=== PATIENT | male | born 1980 | race Caucasian/White ===

== ENCOUNTER 2024-08-13 12:03 | Observation (INO) | payer SELFPAY ==
[2024-08-13 12:07] VITALS: BP 154/110; PULSE 118; RESP 20; TEMP 37; O2SAT 94
[2024-08-13 12:40] LABS: Abs Immature Grans 0.04 10^3/uL (0.0-0.06); Absolute Basophil Count 0.03 10^3/uL (0.0-0.2); Absolute Eosinophil Count 0.05 10^3/uL (0.0-0.7); Absolute Monocyte Count 1.04 10^3/uL (0.1-0.8); Absolute Neutrophil Count 8.02 10^3/uL (1.2-6.7); Basophils % 0.3 %; Eosinophils % 0.5 %; HCT 45.2 % (40.0-50.0); HGB 14.8 g/dL (13.5-17.5); Immature Grans % 0.4 %; Lymphocytes % 9.8 %; MCH 29.8 pg (27.0-33.0); MCHC 32.7 % (32.0-36.0); MCV 91 fL (80-95); MPV 9.2 fL (8.0-11.0); Monocytes % 10.2 %; Neutrophils % 78.8 %; Platelet Count 316 10^3/uL (130-400); RBC 4.97 10^6/uL (4.36-5.78); RDW 13.1 % (11.8-14.1); RDW-SD 43.9 fL; WBC 10.18 10^3/uL (4.4-10.8)
--- NOTE | 2024-08-13 12:42 | W.ED.GENAD ---
Discharge Plan Disposition Patient Disposition: Admit to [facility] Condition: Serious Discharge Details Chief Complaint: Abd Prob Clinical Impression: Obstructive jaundice, Cholelithiasis, Abnormal transaminases, Hyperbilirubinemia Admit Date/Time: 08/13/24 14:58 Admit Provider: Rosalio Nash Attending Provider: Rosalio Nash Primary Care Provider: Unknown,Unknown ED Provider: Rajinder Peralta [facility] General Mode of arrival: ambulatory. Date/Time Provider Initiated Documentation: 08/13/24 12:13. Limitations to Documentation: no limitations. Information obtained by: patient. HPI Narrative: 43-year-old male presents with chief complaint of abdominal pain. Patient notes he experienced sudden sharp upper abdominal pain 3 days ago. Pain improved and then the following day he had recurrent discomfort in the same area. Pain has persisted. No associated nausea or vomiting. He has associated yellow discoloration to skin. Related Data Home Medications ?Medication ?Instructions ?Recorded ?Confirmed Unknown [No Known Home Meds] 08/13/24 08/13/24 Allergies Allergy/AdvReac Type Severity Reaction Status Date / Time shellfish derived Allergy Severe Anaphylaxis Verified 08/13/24 12:11 General Stated Complaint: Abd Prob SHON: 3 Review of Systems All systems reviewed & are unremarkable except as noted in HPI and below Constitutional Constitutional: Denies fever(s) Gastrointestinal Gastrointestinal: Reports as per HPI Exam Const General: cooperative and no acute distress HENMT Mouth: moist mucous membranes Eyes Sclera: scleral abnormality bilaterally other (Icterus) Resp Auscultation: clear to auscultation bilaterally, no rales, no rhonchi and no wheezes Cardio Rate: regular rate and not tachycardic Rhythm: regular rhythm GI Inspection: non-distended Palpation: soft, not firm, no guarding, no masses, not rigid and tender in the epigastrum Auscultation: normal bowel sounds Skin General skin exam: jaundice Neuro General: patient alert, patient awake, patient oriented x3 and tone normal Cognition: normal cognition Extrem General: no edema Course Vital Signs Vital signs: Vital Signs Temperature 37.0 C 08/13/24 12:07 Pulse 118 H 08/13/24 12:07 Respiratory Rate 20 08/13/24 12:07 Blood Pressure 154/110 H 08/13/24 12:07 Pulse Oximetry 94 08/13/24 12:07 Temperature 37.0 C 08/13/24 12:07 Pulse 118 H 08/13/24 12:07 Respiratory Rate 20 08/13/24 12:07 Respiratory Effort Non-Labored 08/13/24 12:25 Blood Pressure 154/110 H 08/13/24 12:07 Blood Pressure Position Sitting 08/13/24 12:07 Pulse Oximetry 94 08/13/24 12:07 Oxygen Delivery Method Room Air 08/13/24 12:07 Oxygen Flow Rate 0 08/13/24 12:07 Pain Level 4 08/13/24 12:07 Lab/Test Results Lab/Test Results: Laboratory Tests Range/Units 08/13/24 12:30 WBC (4.4-10.8) 10^3/uL 10.18 RBC (4.36-5.78) 10^6/uL 4.97 Hgb (13.5-17.5) g/dL 14.8 Hct (40.0-50.0) % 45.2 MCV (80-95) fL 91 MCH (27.0-33.0) pg 29.8 MCHC (32.0-36.0) % 32.7 RDW (11.8-14.1) % 13.1 Plt Count (130-400) 10^3/uL 316 MPV (8.0-11.0) fL 9.2 Immature Gran % % 0.4 Neutrophils % % 78.8 Lymphocytes % % 9.8 Monocytes % % 10.2 Eosinophils % % 0.5 Basophils % % 0.3 Nucleated RBC % (0.0-0.3) % 0.0 Absolute Neutrophils (1.2-6.7) 10^3/uL 8.02 H Absolute Lymphocytes (1.2-3.4) 10^3/uL 1.00 L Absolute Monocytes (0.1-0.8) 10^3/uL 1.04 H Absolute Eosinophils (0.0-0.7) 10^3/uL 0.05 Absolute Basophils (0.0-0.2) 10^3/uL 0.03 Medical Decision Making 1245??43-year-old male here with upper abdominal pain over the past few days after episode of sudden sharp pain in his right upper abdomen. Patient has associated jaundice. Patient is tachycardic and hypertensive. Consider choledocholithiasis versus acute hepatitis.. POCUS performed and concerning for hyperechoic finding within gallbladder concerning for sludge and stone. Negative sonographic Manning sign. Plan to obtain abdominal ultrasound. Will check LFTs. 1413 --Labs reviewed and transaminitis with hyperbilirubinemia noted. Normal lipase. Ultrasound of the abdomen was interpreted by radiology:Gallbladder distended with stones and sludge. Findings suspicious for acute cholecystitis. Intra and extrahepatic biliary dilatation. No visible common duct stone. Plan to consult general surgery -- I spoke with Dr. Nash, discussed ED presentation course, he will admit the patient. Lab Data Lab results reviewed: Yes I reviewed the patient's lab results. Labs: Laboratory Tests Range/Units 08/13/24 12:30 WBC (4.4-10.8) 10^3/uL 10.18 RBC (4.36-5.78) 10^6/uL 4.97 Hgb (13.5-17.5) g/dL 14.8 Hct (40.0-50.0) % 45.2 MCV (80-95) fL 91 MCH (27.0-33.0) pg 29.8 MCHC (32.0-36.0) % 32.7 RDW (11.8-14.1) % 13.1 Plt Count (130-400) 10^3/uL 316 MPV (8.0-11.0) fL 9.2 Immature Gran % % 0.4 Neutrophils % % 78.8 Lymphocytes % % 9.8 Monocytes % % 10.2 Eosinophils % % 0.5 Basophils % % 0.3 Nucleated RBC % (0.0-0.3) % 0.0 Absolute Neutrophils (1.2-6.7) 10^3/uL 8.02 H Absolute Lymphocytes (1.2-3.4) 10^3/uL 1.00 L Absolute Monocytes (0.1-0.8) 10^3/uL 1.04 H Absolute Eosinophils (0.0-0.7) 10^3/uL 0.05 Absolute Basophils (0.0-0.2) 10^3/uL 0.03 Sodium (136-145) mmol/L 138 Potassium (3.5-5.1) mmol/L 3.4 L Chloride (98-107) mmol/L 101 Carbon Dioxide (21.0-32.0) mmol/L 25.8 Anion Gap (3-11) mmol/L 11.2 H BUN (7-18) mg/dL 5 L Creatinine (0.70-1.30) mg/dL 0.9 Est GFR (CKD-EPI 2020) (mL/min/1.73m2) 109.36 Glucose (74-106) mg/dL 107 H Calcium (8.5-10.1) mg/dL 9.7 Total Bilirubin (0.2-1.0) mg/dL 7.60 H AST (15-37) U/L 108 H ALT (16-63) U/L 293 H Alkaline Phosphatase (46-116) U/L 457 H Total Protein (6.4-8.2) g/dL 8.3 H Albumin (3.4-5.0) g/dL 3.6 Lipase (16-77) U/L 20 Quality:[facility] Health Related Social Needs: No Data to Display PFSH All Active Problems (Updated 08/13/24 @ 16:36 by Rajinder Peralta MD) Hyperbilirubinemia (Acute) Abnormal transaminases (Acute) Cholelithiasis (Acute) Obstructive jaundice (Acute) Social History Smoking/Tobacco Use Status: Former Tobacco Use Smoking risk assessment performed?: Yes Alcohol Intake: never Substance use type: does not use
--- NOTE | 2024-08-13 12:45 | DI.US_ITS ---
Exam(s) US ABDOMEN LIMITED EXAM: US ABDOMEN LIMITED CLINICAL HISTORY: abd pain, jaundice TECHNIQUE: Ultrasound abdomen performed using standard protocol. COMPARISON: US POCUS EXAM from 08/13/2024 FINDINGS: LIVER: Normal size. Normalechogenicity. No focal liver lesions are seen.. GALLBLADDER: Stones and sludge noted in gallbladder. Gallbladder mildly distended. Borderline wall thickening. No pericholecystic fluid identified. MCDONALD'S SIGN: Positive BILIARY SYSTEM: Abnormally dilated common bile duct to 11 millimeters. No common duct stone visible. Intrahepatic biliary dilatation also present. RIGHT KIDNEY: Normal size. No evidence of renal calculi. No evidence of hydronephrosis. No suspicious renal mass. No cyst identified. PANCREAS: Normal where visualized. ABDOMINAL AORTA AND IVC: Visualized portions normal caliber. ASCITES: None seen. IMPRESSION: Gallbladder distended with stones and sludge. Findings suspicious for acute cholecystitis. Intra and extrahepatic biliary dilatation. No visible common duct stone. DATA REPOSITORY:
[2024-08-13 13:12] LABS: ALT 293 U/L (16-63); AST 108 U/L (15-37); Albumin 3.6 g/dL (3.4-5.0); Alkaline Phosphatase 457 U/L (46-116); Anion Gap 11.2 mmol/L (3-11); BUN 5 mg/dL (7-18); CO2 25.8 mmol/L (21.0-32.0); CREATININE 0.9 mg/dL (0.70-1.30); Calcium 9.7 mg/dL (8.5-10.1); Chloride 101 mmol/L (98-107); Estimated GFR 109.36 (mL/min/1.73m2); Glucose 107 mg/dL (74-106); Lipase 20 U/L (16-77); Potassium 3.4 mmol/L (3.5-5.1); Sodium 138 mmol/L (136-145); Total Protein 8.3 g/dL (6.4-8.2)
[2024-08-13 13:55] VITALS: BP 147/84; PULSE 99; RESP 25; TEMP 37; O2SAT 99
--- NOTE | 2024-08-13 15:05 | W.PM.HP.N ---
Date of service: 08/13/24 Time of Service: 15:05 Assessment and Plan Assessment and plan (1) Obstructive jaundice: Status: Acute Assessment and plan: I was able to review the ultrasound here, and based on the history, as well as the imaging, and certainly because of his biochemistry, I have some concern for obstruction of the common bile duct. Choledocholithiasis would be the most likely explanation, although I suppose severe cholecystitis could present that way as well. However, I would expect him to be a little more tender if that was the case. A safest option at this point is to obtain an MRCP to rule out any kind of common bile duct obstruction. If that is positive, that he need to undergo ERCP to clear the duct prior to cholecystectomy. If that study is negative, then we can move forward with relatively urgent cholecystectomy. History of Present Illness History of Present Illness Chief Complaint: Jaundice Narrative: Hernando is 43 years old. Approximately 3 days ago he noticed acute onset of midepigastric right upper quadrant abdominal pain. He described as sharp and stabbing. It was fairly striking in its nature and intensity. It lasted just a few minutes, and resolved spontaneously. Unfortunately, he started to have several episodes after that which became more frequent 3 yesterday. He also became extremely tired, and slept through most of the day. He was feeling a little bit better today, and he went into work this morning. It was not long after that but his boss noticed his skin looked yellow, and told him he should go home and see a doctor. He came to the emergency department, was found to have an elevated bilirubin. He underwent an ultrasound that showed cholelithiasis, and dilation of the intra and extrahepatic ducts. Review of Systems Constitutional Constitutional: Reports fatigue and Reports poor appetite Eyes Eyes: Reports system reviewed and no additional complaints, except as documented ENT Ears, Nose, Mouth, and Throat: Reports system reviewed and no additional complaints, except as documented Cardiovascular Cardiovascular: Denies chest pain and Denies dyspnea Respiratory Respiratory: Denies chest congestion and Denies dyspnea Gastrointestinal Gastrointestinal: Reports change in bowel habits (No bowel movement in 3 days) and Denies vomiting Genitourinary Genitourinary: Reports system reviewed and no additional complaints, except as documented Musculoskeletal Musculoskeletal: Denies back pain and Denies myalgias Neurologic Neurologic: Reports system reviewed and no additional complaints, except as documented Psychiatric Psychiatric: Reports system reviewed and no additional complaints, except as documented Endocrine Endocrine: Reports fatigue Hematologic/Lymphatic Hematologic/Lymphatic: Denies easy bleeding and Denies easy bruising PFSH All Active Problems (Updated 08/13/24 @ 16:36 by Rajinder Peralta MD) Hyperbilirubinemia (Acute) Abnormal transaminases (Acute) Cholelithiasis (Acute) Obstructive jaundice (Acute) Social History Smoking/Tobacco Use Status: Former Tobacco Use Smoking risk assessment performed?: Yes Alcohol Intake: never Substance use type: does not use Meds Allergies and Home Medications Allergies Allergy/AdvReac Type Severity Reaction Status Date / Time shellfish derived Allergy Severe Anaphylaxis Verified 08/13/24 12:11 Home Medications ?Medication ?Instructions ?Recorded ?Confirmed ?Type Unknown [No Known Home Meds] 08/13/24 08/13/24 History Exam Const General: cooperative, comfortable and no acute distress Nutritional Appearance: average body habitus Orientation: alert, awake and oriented x3 Other: Jaundice HENMT Head: normal to inspection Eyes Sclera: scleral abnormality (Scleral icterus bilaterally) Resp Effort & Inspection: normal respiratory effort and no cough Cardio Rate: regular rate Rhythm: regular rhythm Heart Sounds: S1 normal and S2 normal GI Inspection: normal to inspection and non-distended Palpation: soft, no guarding and nontender Percussion: normal to percussion Skin General skin exam: other (Jaundice) Extrem General: capillary refill normal Right lower extremity: no cyanosis and no edema Left lower extremity: no cyanosis and no edema Results Imaging Abdominal ultrasound report/results: report reviewed and image reviewed Labs 08/13/24 12:30 08/13/24 12:30 Labs: Laboratory Results - last 24 hr 08/13/24 12:30 WBC 10.18 RBC 4.97 Hgb 14.8 Hct 45.2 MCV 91 MCH 29.8 MCHC 32.7 RDW 13.1 Plt Count 316 MPV 9.2 Immature Gran % 0.4 Neutrophils % 78.8 Lymphocytes % 9.8 Monocytes % 10.2 Eosinophils % 0.5 Basophils % 0.3 Nucleated RBC % 0.0 Absolute Neutrophils 8.02 H Absolute Lymphocytes 1.00 L Absolute Monocytes 1.04 H Absolute Eosinophils 0.05 Absolute Basophils 0.03 Sodium 138 Potassium 3.4 L Chloride 101 Carbon Dioxide 25.8 Anion Gap 11.2 H BUN 5 L Creatinine 0.9 Est GFR (CKD-EPI 2020) 109.36 Glucose 107 H Calcium 9.7 Total Bilirubin 7.60 H AST 108 H ALT 293 H Alkaline Phosphatase 457 H Total Protein 8.3 H Albumin 3.6 Lipase 20 Last Vital Signs Temp 98.6 F 08/13/24 13:55 Pulse 99 H 08/13/24 13:55 Resp 25 H 08/13/24 13:55 BP 147/84 H 08/13/24 13:55 Pulse Ox 99 08/13/24 13:55 Time Spent Time spent with Patient: >75 minutes Time was spent: preparing to see the patient(eg.review tests), ordering medications,tests, procedures, referring, communicating with other health health care / medical job titles, indepentently interpreting results, counseling the patient and care coordination
--- NOTE | 2024-08-13 16:10 | DI.MRI_ITS ---
Exam(s) MR ABDOMEN WO EXAM: MR ABDOMEN WO CLINICAL HISTORY: Choledocholithiasis TECHNIQUE: Multiplanar multisequence MRI was performed with both pre and post contrast infused seque nces. Contrast injected sequences were performed following IV injection of cc of Dotarem. COMPARISON: No exams were available for comparison FINDINGS: VISUALIZED LUNG BASES: No pleural effusions evident. There is no ascites evident. LIVER: There are dilated intrahepatic ducts as well as dilated CBD. No focal hepatic lesions identif ied. Some steatosis evident. BILIARY: There is a combination of gallstones and sludge in the gallbladder lumen. Gallbladder wall is not grossly edematous and there is no pericholecystic fluid. There is slight prominence of the cy stic duct which exhibits luminal diameter 8 mm. There are no obvious calculi in the cystic duct. Th e CBD is dilated to 1.4 cm. There is some sludge in calculus within the lower CBD. Calculus at this level measures 1.4 cm craniocaudal length. Another calculus is seen at the junction of the CBD and duodenum measuring 6-7 mm. PANCREAS: There is no evidence of pancreatic mass nor dilatation of the pancreatic duct.No obvious ev idence of pancreatitis. SPLEEN: Spleen is not enlarged and there are no intrasplenic lesions.Splenic and portal veins are pat ent ADRENALS: There are no significant adrenal masses. KIDNEYS: No solid renal masses. No hydronephrosis.No significant cysts evident. ABDOMINAL AORTA: Not enlarged and there is no significant para-aortic adenopathy. ANTERIOR ABDOMINAL WALL/GI: There is no evidence of significant anterior abdominal wall hernia in the field of view of this study.Is no evidence of obvious bowel obstruction. OSSEOUS: There are no lytic osseous lesions in the field of view of this study. IMPRESSION: 1. Findings consistent with cholelithiasis and choledocholithiasis. There calculi and sludge in the lower CBD. CBD above this level is dilated to 1.4 cm. There also calculi and sludge within the gall bladder lumen. There presently no calculi evident in the cystic duct. Gallbladder appears mildly di stended. There is an additional wall defect at the fundus of the gallbladder noted which does not posey ve the appearance of a calculus and may be related to other pathology at this level. Findings discussed with surgeon on-call 08/13/2024 at 4:48 p.m. DATA REPOSITORY:
--- NOTE | 2024-08-13 16:36 | ED.PROG_ITS ---
Date of service: 08/13/24 Time of Service: 16:36 Medical Decision Making Quality:SDOH Health Related Social Needs: No Data to Display Discharge Plan Disposition Patient Disposition: Admit to [facility] Condition: Serious Discharge Details Clinical Impression: Obstructive jaundice, Cholelithiasis, Abnormal transaminases, Hyperbilirubinemia Admit Date/Time: 08/13/24 14:58 Admit Provider: Rosalio Nash Attending Provider: Rosalio Nash Primary Care Provider: Unknown,Unknown ED Provider: Rajinder Peralta POCUS Exam (ED) Limited Gallbladder Exam DATE OF EXAM: 08/13/24 TIME OF EXAM: 12:15 PROVIDER THAT PERFORMED THE STUDY: Rajinder Peralta REASON FOR VISIT: Abdominal pain and RUQ pain VISUALIZED STRUCTURES: Gallbladder PERTINENT FINDINGS/IMPRESSION: Cholelithiasis Exam complete
--- NOTE | 2024-08-13 17:14 | W.PC.ACHO ---
Registration Status: Primary Language: Preferred Language: ED Information & Data Chief Complaint Abd Prob 08/13/24 12:47 Triage Note 4 of 10 steady pain starting 08/13/24 12:07 in upper center of abd . Denies N/V/D. Constipated. PT reports yellowing of eyes and skin becoming noticeable today. Reduced oral intake. Most Recent Vital Signs Temperature 37.0 C 08/13/24 13:55 Temperature Source Temporal Artery Scan 08/13/24 13:55 Pulse 99 H 08/13/24 13:55 Pulse Rhythm Regular 08/13/24 13:55 Pulse Strength Normal 08/13/24 13:55 Respiratory Rate 25 H 08/13/24 13:55 Respiratory Effort Non-Labored 08/13/24 13:55 Respiratory Depth Normal 08/13/24 13:55 Respiratory Pattern Normal 08/13/24 13:55 Blood Pressure 147/84 H 08/13/24 13:55 Blood Pressure Mean 105 08/13/24 13:55 Blood Pressure Position Sitting 08/13/24 12:07 Pulse Oximetry 99 08/13/24 13:55 Oxygen Delivery Method Room Air 08/13/24 13:55 Oxygen Flow Rate 0 08/13/24 13:55 Pain Level 7 08/13/24 13:55 Allergies shellfish derived Allergy (Severe, Verified 08/13/24 12:11) Anaphylaxis Precautions Isolation Standard precaution 08/13/24 12:25 IV IV Catheter Type [Left Saline Lock Antecubital] IV Catheter Gauge [Left 18 Antecubital] Diet Orders Category Date Time Status Nothing Per Oral [DIET] Nutrition 08/13/24 Dinner Active npo [Nothing Per Oral] [DIET] Nutrition 08/13/24 Dinner Active Diagnostics 08/13/24 Range/Units 12:30 WBC 10.18 (4.4-10.8) 10^3/uL RBC 4.97 (4.36-5.78) 10^6/uL Hgb 14.8 (13.5-17.5) g/dL Hct 45.2 (40.0-50.0) % MCV 91 (80-95) fL MCH 29.8 (27.0-33.0) pg MCHC 32.7 (32.0-36.0) % RDW 13.1 (11.8-14.1) % Plt Count 316 (130-400) 10^3/uL MPV 9.2 (8.0-11.0) fL Immature Gran % 0.4 % Neutrophils % 78.8 % Lymphocytes % 9.8 % Monocytes % 10.2 % Eosinophils % 0.5 % Basophils % 0.3 % Nucleated RBC % 0.0 (0.0-0.3) % Absolute Neutrophils 8.02 H (1.2-6.7) 10^3/uL Absolute Lymphocytes 1.00 L (1.2-3.4) 10^3/uL Absolute Monocytes 1.04 H (0.1-0.8) 10^3/uL Absolute Eosinophils 0.05 (0.0-0.7) 10^3/uL Absolute Basophils 0.03 (0.0-0.2) 10^3/uL Sodium 138 (136-145) mmol/L Potassium 3.4 L (3.5-5.1) mmol/L Chloride 101 (98-107) mmol/L Carbon Dioxide 25.8 (21.0-32.0) mmol/L Anion Gap 11.2 H (3-11) mmol/L BUN 5 L (7-18) mg/dL Creatinine 0.9 (0.70-1.30) mg/dL Est GFR (CKD-EPI 2020) 109.36 (mL/min/1.73m2) Glucose 107 H (74-106) mg/dL Calcium 9.7 (8.5-10.1) mg/dL Total Bilirubin 7.60 H (0.2-1.0) mg/dL AST 108 H (15-37) U/L ALT 293 H (16-63) U/L Alkaline Phosphatase 457 H (46-116) U/L Total Protein 8.3 H (6.4-8.2) g/dL Albumin 3.6 (3.4-5.0) g/dL Lipase 20 (16-77) U/L Intake and Output - 24 Hour Total 08/13/24 12:03 thru 08/13/24 12:07 Weight 102.512 kg Falls Risk Assessment History of Falls No History 08/13/24 12:36 Contributing Factors No Factors 08/13/24 12:36 Ambulatory Aids Independent 08/13/24 12:36 Tubes/Lines None 08/13/24 12:36 Gait Evaluation No gait disturbance 08/13/24 12:36 Cognition No cognitive impairment 08/13/24 12:36 Fall Total Score 0 08/13/24 12:36 Level of Risk Standard/Low Risk 08/13/24 12:36 Problems (Last Reviewed 08/13/24 @ 12:44 by Rajinder Peralta MD) Obstructive jaundice (Acute) v v v v v v v v v Sending and/or Receiving Nurses: Please use comment section below to note any information pertinent to the patient hand-off not included above. Information / Comments: abd pain with jaundice Report received from: karthik
[2024-08-13 17:16] VITALS: BP 150/93; PULSE 98; RESP 15; TEMP 37.4; O2SAT 99
[2024-08-13] MEDS: Enoxaparin 40 MG/0.4 ML SYR SC (17:46)
[2024-08-13] MEDS: HYDROmorphone 1 MG/ML SYR IVP ×2 (17:47→20:03)
[2024-08-13] MEDS: Normal Saline Flush 10 ML SYR IVP ×3 (17:47→20:04)
--- NOTE | 2024-08-13 18:52 | PGE_ITS ---
Date of Service Date of service: 08/13/24 Time of Service: 18:52 Assessment and Plan Assessment and plan (1) Obstructive jaundice: Status: Acute Assessment and plan: MRCP shows a stone in the distal common bile duct. I called [facility] at 4:20 PM. No call was returned. I called him again at 6:30 PM. They told me they would repaged gastroenterology. Dr. Holder called me back at 6:46 PM. Explained the clinical situation, and he requested down her back ERCP. Dr Jackman agreed the ERCP was clinically indicated. That doctor asked me to call back tomorrow morning at 8:30 AM through the transfer center to see if the gastroenterology department could accommodate the patient in the schedule tomorrow. I will keep the patient n.p.o. overnight in case they are able to perform the procedure. We will call the transfer center at [phone] tomorrow morning around 8:30 AM and request transfer once again. Subjective Subjective Interval history since last seen: Update regarding ERCP Objective Last Vital Signs Temp 99.3 F 08/13/24 17:16 Pulse 98 H 08/13/24 17:16 Resp 15 08/13/24 17:16 BP 150/93 H 08/13/24 17:16 Pulse Ox 99 08/13/24 17:16 Laboratory Results - last 24 hr 08/13/24 12:30 WBC 10.18 RBC 4.97 Hgb 14.8 Hct 45.2 MCV 91 MCH 29.8 MCHC 32.7 RDW 13.1 Plt Count 316 MPV 9.2 Immature Gran % 0.4 Neutrophils % 78.8 Lymphocytes % 9.8 Monocytes % 10.2 Eosinophils % 0.5 Basophils % 0.3 Nucleated RBC % 0.0 Absolute Neutrophils 8.02 H Absolute Lymphocytes 1.00 L Absolute Monocytes 1.04 H Absolute Eosinophils 0.05 Absolute Basophils 0.03 Sodium 138 Potassium 3.4 L Chloride 101 Carbon Dioxide 25.8 Anion Gap 11.2 H BUN 5 L Creatinine 0.9 Est GFR (CKD-EPI 2020) 109.36 Glucose 107 H Calcium 9.7 Total Bilirubin 7.60 H AST 108 H ALT 293 H Alkaline Phosphatase 457 H Total Protein 8.3 H Albumin 3.6 Lipase 20 Time Spent with Patient Time Spent with Patient: 25-34 minutes Time was spent: care coordination
[2024-08-13] MEDS: Ketorolac 30 MG/ML VIAL IVP (20:02)
[2024-08-14 03:18] VITALS: BP 132/80; PULSE 107; RESP 18; TEMP 36.7; O2SAT 97
[2024-08-14] MEDS: Ketorolac 30 MG/ML VIAL IVP (06:38)
[2024-08-14] MEDS: Lactated Ringers 1,000 ML 75 ML IV ×2 (06:38→20:47)
[2024-08-14] MEDS: Normal Saline Flush 10 ML SYR IVP ×2 (06:39→20:48)
[2024-08-14 07:17] LABS: ALT 261 U/L (16-63); AST 119 U/L (15-37); Albumin 3.2 g/dL (3.4-5.0); Alkaline Phosphatase 500 U/L (46-116); Anion Gap 12.1 mmol/L (3-11); BUN 9 mg/dL (7-18); Bilirubin, Direct 7.2 mg/dL (0.0-0.2); Bilirubin, Total 8.74 mg/dL (0.2-1.0); CO2 27.9 mmol/L (21.0-32.0); Calcium 9.8 mg/dL (8.5-10.1); Chloride 104 mmol/L (98-107); Estimated GFR 96.37 (mL/min/1.73m2); Glucose 86 mg/dL (74-106); Potassium 3.8 mmol/L (3.5-5.1); Sodium 144 mmol/L (136-145); Total Protein 7.8 g/dL (6.4-8.2)
[2024-08-14 07:21] VITALS: BP 126/78; PULSE 93; RESP 16; TEMP 37.1; O2SAT 97
[2024-08-14 07:26] LABS: Abs Immature Grans 0.03 10^3/uL (0.0-0.06); Absolute Basophil Count 0.04 10^3/uL (0.0-0.2); Absolute Eosinophil Count 0.08 10^3/uL (0.0-0.7); Absolute Lymphocyte Count 1.34 10^3/uL (1.2-3.4); Absolute Monocyte Count 0.83 10^3/uL (0.1-0.8); Absolute Neutrophil Count 5.24 10^3/uL (1.2-6.7); Basophils % 0.5 %; Eosinophils % 1.1 %; HCT 44.4 % (40.0-50.0); HGB 14.3 g/dL (13.5-17.5); Immature Grans % 0.4 %; Lymphocytes % 17.7 %; MCH 29.9 pg (27.0-33.0); MCHC 32.2 % (32.0-36.0); MCV 93 fL (80-95); MPV 9.4 fL (8.0-11.0); Neutrophils % 69.3 %; Platelet Count 301 10^3/uL (130-400); RBC 4.79 10^6/uL (4.36-5.78); RDW 13.5 % (11.8-14.1); RDW-SD 45.7 fL; WBC 7.56 10^3/uL (4.4-10.8)
--- NOTE | 2024-08-14 07:45 | PGE_ITS ---
Date of Service Date of service: 08/14/24 Time of Service: 07:45 Assessment and Plan Assessment and plan (1) Obstructive jaundice: Status: Acute Assessment and plan: (+) MRCP, awaiting call this morning from [facility] [place] for down and back ERCP. Pain is currently well controlled. He will remain NPO until after his procedure. Encouraged getting OOB for hygiene, ambulation and sitting in the chair. Following ERCP, will discuss proceeding with Cholecystectomy. Subjective Subjective Interval history since last seen: Arrive with Hernando resting in bed. He verbalizes a very good understanding of the findings of his common bile duct stone and the up coming procedure (ERCP). He states his pain is well controlled with the medications ordered. Denies any nausea or vomiting. Exam Const General: cooperative, healthy appearing and comfortable Orientation: alert and oriented x3 Resp Effort & Inspection: normal respiratory effort, no audible wheezes and no cough Objective Last Vital Signs Temp 37.1 C 08/14/24 07:21 Pulse 93 H 08/14/24 07:21 Resp 16 08/14/24 07:21 BP 126/78 08/14/24 07:21 Pulse Ox 97 08/14/24 07:21 Laboratory Results - last 24 hr 08/13/24 08/14/24 12:30 06:30 WBC 10.18 7.56 RBC 4.97 4.79 Hgb 14.8 14.3 Hct 45.2 44.4 MCV 91 93 MCH 29.8 29.9 MCHC 32.7 32.2 RDW 13.1 13.5 Plt Count 316 301 MPV 9.2 9.4 Immature Gran % 0.4 0.4 Neutrophils % 78.8 69.3 Lymphocytes % 9.8 17.7 Monocytes % 10.2 11.0 Eosinophils % 0.5 1.1 Basophils % 0.3 0.5 Nucleated RBC % 0.0 0.0 Absolute Neutrophils 8.02 H 5.24 Absolute Lymphocytes 1.00 L 1.34 Absolute Monocytes 1.04 H 0.83 H Absolute Eosinophils 0.05 0.08 Absolute Basophils 0.03 0.04 Sodium 138 144 Potassium 3.4 L 3.8 Chloride 101 104 Carbon Dioxide 25.8 27.9 Anion Gap 11.2 H 12.1 H BUN 5 L 9 Creatinine 0.9 1.0 Est GFR (CKD-EPI 2020) 109.36 96.37 Glucose 107 H 86 Calcium 9.7 9.8 Total Bilirubin 7.60 H 8.74 H Conjugated Bilirubin 7.2 H AST 108 H 119 H ALT 293 H 261 H Alkaline Phosphatase 457 H 500 H Total Protein 8.3 H 7.8 Albumin 3.6 3.2 L Lipase 20 Time Spent with Patient Time Spent with Patient: <25 minutes Time was spent: preparing to see the patient(eg.review tests), obtaining and/or reviewing separately otained hiistory and counseling the patient
--- NOTE | 2024-08-14 11:50 | PDOC.CMIN ---
Date of service: 08/14/24 Time of Service: 11:50 Care Management Initial Assmt Initial Assessment Reason for Hospitalization: obstructive jaundice Functional Status/Living Situation Patient Presentation: Hernando was admitted through the ED yesterday after his boss told him he looked terrible and he should go to the ED. His had been worried something was wrong for a while. Hernando thinks his symptoms may have started about 3 months ago when he noticed some epigastric pain. The pain continued to get worse and he also became quite jaundiced. He was found to have cholelithiasis and stones obstructing his common bile duct. Gavin was sitting up in bed, talking with his [id number] when CM met with him. He was notably jaundiced. He was very pleasant, and easily conversed. He stated that he is feeling better. His pain is now controlled. Hernando is awaiting a down and back procedure for ERCP at [facility] tomorrow. The plan is for him to be picked up at 11:30 for 1400 arrival, and 1500 procedure. Hernando feels that the surgeon really well explained his blockage and the procedure. He may need his gallbladder out, but that will be decided post ERCP. Hernando has no insurance. He is employed, but no insurance is offered. Hernando was given the medicaid application and the patient assistance packet. It was explained to him. He said he will look into it once all this is done. He also has no PCP, but is starting to see why it is important to have one. T-doc was [facility]. Hernando does not want an appointment made for him prior to discharge. CM called [facility], and they are accepting new patients. 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[employer] ) Instrumental Activities of Daily Living (ADLs): Independent Medications Medication Management: No Issues/Barriers identified (no home meds) Advance Directives Advance Directives: Do you have an Advance Directive: AD On File at [facility]: N 08/13/24 14:21 Date Asked 08/13/24 08/13/24 14:21 AD Date Reviewed COLST On File at [facility] COLST Date Scanned Code Status Resuscitation Status Full Code Portal Pt does not currently have a portal and education provided: No Insurance Coverage/Financial Issues Insurance: no insurance - self pay- see body of note Financial Issues: denies - except this hospital stay. Care Team Visit Care Team Role Provider Type Unknown Unknown Primary Care Provider STAFF PHYSICIAN Rajinder Peralta MD Emergency Provider [facility] STAFF PHYSICIAN Rosalio Nash MD Admit Provider [facility] STAFF PHYSICIAN Attending Provider Discharge Potential Discharge Needs: PCP F/U Appt and Surgical F/U Appt (Hernando will need to establish with a PCP and f/u with the surgeon. ) Anticipated Barriers to Discharge: None Identified Patient/Family Education Needs: Review discharge instructions, discuss Ask Me Three Transportation: Private vehicle Plan: Anticipate that Hernando will have a successful down and back ERCP at [facility] tomorrow. He will then be discharged home with no new services once medically cleared. He will f/u with the surgeon and establish with a PCP in the community. PFSH All Active Problems (Updated 08/13/24 @ 16:36 by Rajinder Peralta MD) Hyperbilirubinemia (Acute) Abnormal transaminases (Acute) Cholelithiasis (Acute) Obstructive jaundice (Acute) Social History Smoking/Tobacco Use Status: Former Tobacco Use Smoking risk assessment performed?: Yes Alcohol Intake: never Substance use type: does not use Housing: house Readmission Within the Past 30 Days Yes or No: No SDOH(Care Management) Screening Will the Patient Participate in the Screening?: Yes Do you worry about having a steady place to live?: no Problems where you live: no known problems In the past 12 months, have you had to go without electric, gas, oil or water in your home?: no Have you or anyone in your house had to go without enough food to eat?: no Has lack of transportation kept you from medical appointments or from doing things needed for daily living?: no Has anyone in your support network made you feel unsafe for any reason?: no
[2024-08-14 14:47] VITALS: BP 131/78; PULSE 79; RESP 16; TEMP 37.3; O2SAT 96
[2024-08-14] MEDS: Enoxaparin 40 MG/0.4 ML SYR SC (17:08)
[2024-08-14] MEDS: Magnesium Citrate 300 ML BTL 150 ML PO (17:10)
[2024-08-14 20:22] VITALS: BP 129/78; PULSE 62; RESP 18; TEMP 36.8; O2SAT 97
[2024-08-14] MEDS: HYDROmorphone 1 MG/ML SYR IVP (20:47)
[2024-08-15] MEDS: Ketorolac 30 MG/ML VIAL IVP ×2 (02:44→09:39)
[2024-08-15] MEDS: Normal Saline Flush 10 ML SYR IVP ×2 (02:46→21:28)
[2024-08-15] MEDS: HYDROmorphone 1 MG/ML SYR IVP ×2 (02:56→11:11)
[2024-08-15 07:26] LABS: ALT 247 U/L (16-63); AST 158 U/L (15-37); Albumin 2.7 g/dL (3.4-5.0); Alkaline Phosphatase 485 U/L (46-116); Bilirubin, Direct 6.5 mg/dL (0.0-0.2); Bilirubin, Total 7.59 mg/dL (0.2-1.0); Total Protein 6.8 g/dL (6.4-8.2)
[2024-08-15 07:34] VITALS: BP 134/75; PULSE 82; RESP 17; TEMP 36.2; O2SAT 96
[2024-08-15] MEDS: Lactated Ringers 1,000 ML 75 ML IV (09:48)
--- NOTE | 2024-08-15 11:36 | NUR.NOTE ---
Nursing Note: Report to Erma JOHNSON in endoscopy at [facility]. Pt to transfer via ambulance for ERCP. Pt medicated for ride, IV saline locked and pt up to void prior to leaving.
--- NOTE | 2024-08-15 11:50 | PDOC.CMPRO ---
Date of service: 08/15/24 Time of Service: 11:50 Care Management Progress Note Progress Note Text Progress Note Text: Hernando was transported to [facility] for a down and back ERCP today. He was off the unit most of the day and CM was unable to meet with him. Depending on how the procedure goes and how he does afterwards, he may be able to discharge home soon. If he develops pancreatitis removing his gall bladder will become a greater priority , and will likely be scheduled within the next week or so, per provider. Discharge Potential Discharge Needs: Surgical F/U Appt Anticipated Barriers to Discharge: Medical Status Patient/Family Education Needs: Review discharge instructions, discuss Ask Me Three Transportation: Private vehicle Plan: Anticipate that Hernando will be discharged home with no new services after his ERCP, when medically cleared. He will likely have a cholecystectomy at some future date. He will follow up with his surgeon and transport with family. CM will follow and continue to assess for discharge needs. SDOH(Care Management) Screening Will the Patient Participate in the Screening?: Yes Do you worry about having a steady place to live?: no Problems where you live: no known problems In the past 12 months, have you had to go without electric, gas, oil or water in your home?: no Have you or anyone in your house had to go without enough food to eat?: no Has lack of transportation kept you from medical appointments or from doing things needed for daily living?: no Has anyone in your support network made you feel unsafe for any reason?: no
--- NOTE | 2024-08-15 12:46 | NUR.NOTE ---
Reviewed documentation with Alyson Galdamez, student ENGRAVER LETTERING. Pat Mayes, MSN, RNC-OB, clinical instructor
--- NOTE | 2024-08-15 15:38 | PHACLINREV_ITS ---
Pharmacy Admission Review Admission Clinical Review Admission Pharmacy Review: Obstructive jaundice (Acute) shellfish derived Allergy (Severe, Verified 08/13/24 12:11) Anaphylaxis Resuscitation Status Full Code Height 5 ft 9 in Weight 102.512 kg Pharmacy Admission Review Renal Dosing Renal Dosing: BUN 9 mg/dL (7-18) 08/14/24 06:30 Creatinine 1.0 mg/dL (0.70-1.30) 08/14/24 06:30 Medications needing adjustments: Reviewed (CrCl 113.55 mL/min) List of meds needing interventions: Current medications are okay Anticoagulation Anticoagulation: Hgb 14.3 g/dL (13.5-17.5) 08/14/24 06:30 Hct 44.4 % (40.0-50.0) 08/14/24 06:30 Plt Count 301 10^3/uL (130-400) 08/14/24 06:30 Creatinine 1.0 mg/dL (0.70-1.30) 08/14/24 06:30 DVT Prophylaxis: Reviewed (SCDs) Opiate Usage Evaluate Pain Scale/Pains Meds: Reviewed (hydromorphone IVP PRN - 3 doses given) Scheduled Bowel Reg ordered if on Opiates?: No Relevant Labs Relevant Labs: Sodium 144 mmol/L (136-145) 08/14/24 06:30 Potassium 3.8 mmol/L (3.5-5.1) 08/14/24 06:30 Chloride 104 mmol/L (98-107) 08/14/24 06:30 Electrolytes, C-Reactive P, ESR: Reviewed (total bilirubin decreased from 8.74 to 7.59, AST/ALT 119/561 to 158/247, alkaline phosphate decreased from 500 to 485) Cardiac Review BP, HR, EF%: Reviewed (BP and HR WNL) QTc Review QTc: Reviewed (No EKG on file) IV to PO Switch IV Medications: Reviewed (hydromorphone, ketorolac and ondansetron - NPO currently, ERCP at [facility] today) Home Meds Home Med List reviewed: Reviewed Relevent Home Meds Not ordered & why?: No known home meds Current Meds Current Medication Order Review: Reviewed
[2024-08-15 20:19] VITALS: BP 137/79; PULSE 62; RESP 18; TEMP 36.6; O2SAT 100
[2024-08-16 07:15] LABS: Abs Immature Grans 0.03 10^3/uL (0.0-0.06); Absolute Basophil Count 0.06 10^3/uL (0.0-0.2); Absolute Eosinophil Count 0.25 10^3/uL (0.0-0.7); Absolute Lymphocyte Count 1.65 10^3/uL (1.2-3.4); Absolute Neutrophil Count 3.78 10^3/uL (1.2-6.7); Basophils % 0.9 %; Eosinophils % 3.9 %; HCT 40.7 % (40.0-50.0); Immature Grans % 0.5 %; Lymphocytes % 25.9 %; MCH 29.6 pg (27.0-33.0); MCHC 31.9 % (32.0-36.0); MCV 93 fL (80-95); Monocytes % 9.4 %; Neutrophils % 59.4 %; Platelet Count 269 10^3/uL (130-400); RBC 4.39 10^6/uL (4.36-5.78); RDW 13.5 % (11.8-14.1); RDW-SD 46.6 fL; WBC 6.37 10^3/uL (4.4-10.8)
[2024-08-16 07:35] LABS: ALT 265 U/L (16-63); AST 161 U/L (15-37); Albumin 2.7 g/dL (3.4-5.0); Alkaline Phosphatase 540 U/L (46-116); Bilirubin, Direct 6.3 mg/dL (0.0-0.2); Bilirubin, Total 7.62 mg/dL (0.2-1.0); Lipase 20 U/L (16-77); Total Protein 6.9 g/dL (6.4-8.2)
[2024-08-16] MEDS: Normal Saline Flush 10 ML SYR IVP (07:52)
[2024-08-16 08:00] VITALS: BP 129/82; PULSE 74; RESP 16; TEMP 36.5; O2SAT 98
--- NOTE | 2024-08-16 11:06 | PGE_ITS ---
Date of Service Date of service: 08/16/24 Time of Service: 11:07 Assessment and Plan Assessment and plan (1) Obstructive jaundice: Status: Resolved Assessment and plan: Status post ERCP and gallstone removal. Patient is doing well. He has no pain today. He is tolerating a regular diet. Recheck labs this evening and if they are good sheik he can go home at 5 PM. See DC instructions (2) Cholelithiasis: Status: Acute (3) Cholelithiasis and acute cholecystitis with obstruction: Status: Acute Assessment and plan: Patient will follow-up in the office on Sunday and schedule surgery with Dr. Nash Subjective Subjective Interval history since last seen: Patient is seen and examined: they are doing well. THey have : no headaches. No CP or SOB. no productive cough. no dysuria. no leg pain or swelling. No nausea. He did have a small bowel movement. His urine is clear yellow. He has been tolerating regular diet and generally feels really good. We did review his labs this morning. They are equivocal/trending up. We will recheck them in 12 hours and if they are trending down that I am comfortable discharging him. He does have a copy of the ERCP report from [facility]. They did find purulent bile behind the stone. They were able just to do a sphincterotomy and remove the stone and did not have to place a stent. So he will not require stent removal. We discussed surgery and timing of surgery. We do want to give his body a little chance to rest after the ERCP and allow his labs to normalize and the swelling to go down within the hepatoduodenal ligament to make surgery technically more feasible. Dr. Nash will see him in the office on Sunday and hopefully get his surgery scheduled for a week. He was given instructions and diet for post Lili and to follow in the interim until surgery. I do not feel that he requires any further antibiotics other than the 1 dose he will get today Abdomen is nontender today. Objective Last Vital Signs Temp 36.5 C 08/16/24 08:00 Pulse 74 08/16/24 08:00 Resp 16 08/16/24 08:00 BP 129/82 08/16/24 08:00 Pulse Ox 98 08/16/24 08:00 Laboratory Results - last 24 hr 08/16/24 06:38 WBC 6.37 RBC 4.39 Hgb 13.0 L Hct 40.7 MCV 93 MCH 29.6 MCHC 31.9 L RDW 13.5 Plt Count 269 MPV 9.0 Immature Gran % 0.5 Neutrophils % 59.4 Lymphocytes % 25.9 Monocytes % 9.4 Eosinophils % 3.9 Basophils % 0.9 Nucleated RBC % 0.0 Absolute Neutrophils 3.78 Absolute Lymphocytes 1.65 Absolute Monocytes 0.60 Absolute Eosinophils 0.25 Absolute Basophils 0.06 Total Bilirubin 7.62 H Conjugated Bilirubin 6.3 H AST 161 H ALT 265 H Alkaline Phosphatase 540 H Total Protein 6.9 Albumin 2.7 L Lipase 20 Time Spent with Patient Time Spent with Patient: 35-49 minutes Time was spent: preparing to see the patient(eg.review tests), obtaining and/or reviewing separately otained hiistory, ordering medications,tests, procedures, referring, communicating with other health medical care evaluation specialist, indepentently interpreting results, counseling the patient, care coordination and other
[2024-08-16] MEDS: PIPERACILLIN/TAZO 3.375 GM in Normal Saline 50 ML IVPB (13:14)
--- NOTE | 2024-08-16 13:39 | W.PM.DS.N ---
Date of service: 08/16/24 Time of Service: 17:06 DS: Diagnosis Discharge Diagnosis (1) Obstructive jaundice: Status: Acute (2) Cholelithiasis: Status: Acute (3) Cholelithiasis and acute cholecystitis with obstruction: Status: Acute Discharge Plan Disposition Patient Disposition: Home Condition: Improving Discharge Details Reason For Visit: Obstructive Jaundice Admit Date/Time: 08/13/24 17:06 Admit Provider: Rosalio Nash Attending Provider: Rosalio Nash Primary Care Provider: Unknown,Unknown Hospital Course Hospital Course: see addendum Home Meds and New Rx's Prescriptions: No Action No Known Home Meds Discharge Instructions Additional Instructions: -Follow-up with Dr. Nash on Sunday to schedule surgery [facility] [phone] [facility] - You may find that your appetite is smaller. Eat 3-6 small meals throughout the day. It is important to drink lots of water after surgery, 6-10 glasses a day. -If you were given an incentive spirometry (breathing medical housekeeper?), continue to do this 10x/hour while awake. -We do want you up walking, at least 5-6 times per day. This is very important to prevent pneumonia and blood clots. You can climb stairs, take them slowly. -You may find that you are very tired after being in the hospital- this is normal. -have lipid profile done as an outpt. Fasting for 12hrs prior to blooddraw. It's helpful to know a little background: The gallbladder collects bile, a fluid that is produced by the liver, and releases it when you eat to aid the breakdown and absorption of fat. Between meals, bile collects in the gallbladder and is concentrated. When the gallbladder is removed, bile is less concentrated and it drains continuously into the intestine. This affects digestion of fat and fat-soluble vitamins. How much of a problem it is varies from person to person. With time, the body often adjusts and becomes better at digesting fatty foods. The amount of fat eaten at one time also factors into the equation. Smaller amounts of fat are easier to digest. On the other hand, large amounts can remain undigested and cause gas, bloating and diarrhea. ? Eat smaller, more frequent meals. This may ensure a better mix with available bile. Include small amounts of lean protein, such as poultry, fish and nonfat dairy, at every meal, along with vegetables, fruit and whole grains. ? Go easy on fat. Avoid high-fat foods, fried and greasy foods, and fatty sauces and gravies. Instead, choose nonfat or low-fat foods. Read labels and look for foods with 3 grams of fat or less a serving. Foods to Avoid While your body adjusts, it's a good idea to avoid high-fat foods for a few weeks after having gallbladder surgery. High-fat foods include: ? Foods that are fried, like [place] fries and potato chips ? High-fat meats, such as roca, bologna, sausage, ground beef, and ribs, pork products ? High-fat dairy products, such as cheese, ice cream, cream, whole milk, and sour cream ? Pizza ? Foods made with lard or butter ? Creamy soups or sauces ? Meat gravies ? Chocolate ? Oils, such as palm and coconut oil ? Skin of chicken or turkey ?? Nuts and nut butters ?? Avocadoes Activity:: no strenuous activity Equipment/Supplies:: No Equipment Needed Diet:: see above Discharge Orders Discharge Orders: Discharge Order (Routine); Ordered 08/16/24 Ordered By: Hoa Montenegro DS: Summary Time Spent with Patient providing and/or coordinating discharge services: Greater than 30 minutes Status at Discharge Functional status at discharge: independent ambulation Overall status at discharge: patient is back to baseline Mental Status: mental status grossly normal Speech and Movement: speech and movement normal Mood: congruent mood Affect: normal affect Quality:SDOH Health Related Social Needs: No Data to Display Exam Psych Mental Status: mental status grossly normal Speech and Movement: speech and movement normal Mood: congruent mood Affect: normal affect DS: Data Vitals/I&O Vitals and I&O: Vital Signs Temperature 36.5 C 08/16/24 08:00 Temperature Source Temporal Artery Scan 08/16/24 08:00 Pulse 74 08/16/24 08:00 Pulse Rhythm Regular 08/13/24 13:55 Pulse Strength Normal 08/13/24 13:55 Respiratory Rate 16 08/16/24 08:00 Respiratory Effort Normal, Non-Labored 08/13/24 18:00 Respiratory Depth Normal 08/13/24 18:00 Respiratory Pattern Normal 08/13/24 18:00 Blood Pressure 129/82 08/16/24 08:00 Blood Pressure Mean 105 08/13/24 13:55 Blood Pressure Position Sitting 08/13/24 12:07 Pulse Oximetry 98 08/16/24 08:00 Oxygen Delivery Method Room Air 08/16/24 08:00 Oxygen Flow Rate 0 08/16/24 08:00 Pain Level 1 08/16/24 08:00 Comment MAP - 97 08/14/24 03:18 Intake & Output 08/15/24 08/16/24 08/16/24 23:59 11:59 23:59 Intake Total 460 / 1540.00 Balance 460 / 1040.00 Intake: IV 10 / 1090.00 Oral 450 / 450 Other: Urine Color Light Lizbet Urine Odor Normal Comment Independent Stool Size Small Small Stool Characteristics Liquid Formed Brown Data Completed and Pending Labs on day of discharge: Labs from last 24 hours 08/16/24 08/16/24 16:00 06:38 WBC 6.37 RBC 4.39 Hgb 13.0 L Hct 40.7 MCV 93 MCH 29.6 MCHC 31.9 L RDW 13.5 Plt Count 269 MPV 9.0 Immature Gran % 0.5 Neutrophils % 59.4 Lymphocytes % 25.9 Monocytes % 9.4 Eosinophils % 3.9 Basophils % 0.9 Nucleated RBC % 0.0 Absolute Neutrophils 3.78 Absolute Lymphocytes 1.65 Absolute Monocytes 0.60 Absolute Eosinophils 0.25 Absolute Basophils 0.06 Total Bilirubin Pending 7.62 H Conjugated Bilirubin Pending 6.3 H AST Pending 161 H ALT Pending 265 H Alkaline Phosphatase Pending 540 H Total Protein Pending 6.9 Albumin Pending 2.7 L Lipase 20 PFSH All Active Problems (Updated 08/16/24 @ 14:00 by Hoa Montenegro DO) Calculus of bile duct with chronic cholecystitis without obstruction (Acute) Cholelithiasis and acute cholecystitis with obstruction (Acute) Hyperbilirubinemia (Acute) Abnormal transaminases (Acute) Cholelithiasis (Acute) Obstructive jaundice (Acute) Surgical History (Updated 08/16/24 @ 14:00 by Hoa Montenegro DO) S/P ERCP Social History Smoking/Tobacco Use Status: Former Tobacco Use Smoking risk assessment performed?: Yes Alcohol Intake: never Substance use type: does not use Housing: house Time Spent with Patient Time Spent with Patient: 45-69 minutes Time was spent: preparing to see the patient(eg.review tests), obtaining and/or reviewing separately otained hiistory, ordering medications,tests, procedures, referring, communicating with other health assurance services manager health care, indepentently interpreting results, counseling the patient, care coordination and other
[2024-08-16 15:08] VITALS: BP 120/79; PULSE 70; RESP 16; TEMP 36.4; O2SAT 99
[2024-08-16 16:43] LABS: ALT 302 U/L (16-63); AST 204 U/L (15-37); Albumin 2.9 g/dL (3.4-5.0); Alkaline Phosphatase 566 U/L (46-116); Bilirubin, Direct 5.6 mg/dL (0.0-0.2); Total Protein 7.2 g/dL (6.4-8.2)
== END 2024-08-16 17:44 | disposition home or self-care (01) ==
LOC: ER 14:21 → MS 16:36
PROVIDERS: Surgery; Admitting Provider Surgery; Emergency Provider Student in an Organized Health Care Education/Training Program; Visit Provider Surgery
DX: K80.01 Calculus of gallbladder with acute cholecystitis with obstruction (principal); R74.01 Elevation of levels of liver transaminase levels; Z87.891 Personal history of nicotine dependence
CPT/HCPCS: 00123; 36415; 76705; 80048; 80053; 80076; 83690; 96365; 96366; 96372; 96374; 96375; 96376; 99285; J1650; 74181; 85025; G0378; J1171; J1885; J2543; J3490

== ENCOUNTER 2024-09-17 07:32 | Day surgery (SDC) | payer SELFPAY ==
--- NOTE | 2024-09-16 18:24 | PDOC.DSDIS_ITS ---
Date of service: 09/17/24 Discharge Plan Disposition Patient Disposition: Home Condition: Good Discharge Details Reason For Visit: laparoscopic cholecystectomy Attending Provider: Rosalio Nash Home Meds and New Rx's Prescriptions: No Action No Known Home Meds Discharge Instructions Instructions: Cholecystectomy, Laparoscopic Surgery Additional Instructions: Hernando, was great seeing you today, and hopefully will make a quick recovery from the surgery. You did have quite a bit of inflammation down at the connection between your gallbladder and the larger common bile duct, the pipe in which the previous gallstone got stuck. In order to be safe, I ended up performing a subtotal cholecystectomy, which does leave a very small part of the gallbladder behind. This little remnant should not cause any problems for you in the future, and it helps minimize the risk of causing a, bile duct injury, which would be a major complication and set you back even further. Hopefully, he will make a quick recovery from the surgery and get back to your normal self before you know it. Expect to have some bruising over the incision sites. That is extremely common and nothing to be worried about. If you notice the skin turning bright red, or any worrisome discharge from the incisions, please let me know. If you have any questions at all, please do not hesitate to ask or call at any point. Otherwise, I look forward to seeing you on the . 1. Resume all of your regular medications. 2. Alternate heating pads and ice packs over the incisions to help with pain. I typically recommend about 15 to 20-minute intervals, but is totally up to you in terms of how you feel. 3. Alternate [id number] Tylenol and ibuprofen every 6 hours for the first 2 days, then use them as needed. Use the prescription for tramadol if needed for more severe pain. 4. Leave bandages in place for 24 hours, then remove. 5. Shower with warm soapy water. Pat dry. Use a bandaid if needed to protect your clothing. 6. No soaking or tub baths until I see you in the office. 7. No heavy lifting until I see you in the office. 8. Call the office (or go directly to the emergency room after hours) if you notice any of the following: Develop chills (warm to touch), or if you have a thermometer and your temperature is above 101 Difficulty breathing or difficultly swallowing Persistent vomiting Any bleeding ? exceeding one tablespoon 9. Call your physician if the site where your intravenous was started becomes red, swollen, painful, and warm to touch. Stand Alone Forms: Anesthesia Discharge Inst., Forrest Graves (DSU) Referrals: Rosalio Nash MD [ [facility] STAFF PHYSICIAN] - 09/30/24 9:00 am Activity:: Activity as Tolerated Remove Dressings/Wound Care:: 24 hours Shower/Bathe:: 24 hours Diet:: As Tolerated Discharge Orders Discharge Orders: Discharge Order (Routine); Ordered 09/16/24 Ordered By: Rosalio Nash DS: Diagnosis Discharge Diagnosis (1) Calculus of bile duct with chronic cholecystitis without obstruction: Status: Acute Asessment and Plan: Outpatient postoperative follow-up
--- NOTE | 2024-09-16 18:26 | W.PM.OP ---
Operative Note Operative Note PRE-OP DIAGNOSIS: Cholelithiasis complicated by choledocolithiasis Chronic cholecystitis PROCEDURE: laparoscopic subtotal cholecystectomy SURGEON: Rosalio Nash TELEPHONE COIN BOX COLLECTOR: Aisha Zamarripa ANESTHESIA TYPE: General LMA/ETT Refer to Anesthesia Record ESTIMATED BLOOD LOSS: 100 PATHOLOGY: other (Gallbladder) COMPLICATIONS: None Patient was transported to: PACU Patient's condition: stable Indications: Hernando is a 43-year-old male who originally presented to the hospital with jaundice. He was found to have a gallstone in the distal common bile duct and underwent ERCP with clearance of the duct. His hyperbilirubinemia resolved, and he is here for elective cholecystectomy Findings: Chronic cholecystitis with thickened scar tissue at the gallbladder infundibulum Procedure Description: After satisfactory induction of general anesthesia, I prepped and draped the abdomen in usual fashion. Next, I began with a periumbilical incision. I dissected down to the fascia. Then, using a 5 mm optical viewing port, with the assistance of the laparoscope, I entered the peritoneal cavity under direct vision. The peritoneum was then insufflated, and another 5 mm port was placed in the right hemiabdomen. The camera was then moved to that position, and the umbilical port was upsized to a 12 mm. There was no evidence of injury created upon entry. I then placed the patient in some reverse Trendelenburg and left side down positioning. Then, with the assistance of the laparoscope, I used local anesthetic to anesthetize the midepigastric and another right upper quadrant port site. Under the vision of the laparoscope, I passed 2 more 5 mm ports. I then grasped the gallbladder fundus and elevated cephalad. There were thick adhesions and fat pad surrounding the gallbladder infundibulum and the cystic triangle. With the assistance of indocyanine green visualization, I began dissecting the lateral aspect of the cystic duct. This was a tedious dissection, and quite difficult to identify the normal planes. I attempted to carried this medially staying quite close to the gallbladder wall around the cystic neck. It was quite difficult to extend this down onto the cystic duct proper, and the true tissue planes of the cystic triangle were nearly obliterated with chronic inflammation. Because I could not safely identify the trajectory of the cystic artery, and in an effort to stay well away from the common bile duct, I transitioned over to a dome down approach. Backwall of the gallbladder was taken off the gallbladder fossa using electrocautery down towards the infundibulum and the cystic neck. Once this was completely mobilized free, and with the gallbladder retracted slightly cephalad, I upsized the 5 mm port in the mid epigastrium to a 12 port. Next, using an Endo ANTONIO stapler with a purple load, I divided the gallbladder from the cystic neck taking great care to try to capture all of the gallstones and the specimen. The gallbladder was easily divided free, and placed in a laparoscopic specimen bag. Staple line was examined. It was hemostatic. It appeared that a majority of the gallbladder was removed, and only a small portion of the cystic duct was left behind. This tissue felt relatively soft, and I could not appreciate any evidence of gallstones remaining in that portion. Surgical site was all irrigated clean. There is no evidence of any bile leakage, or bleeding. The specimen was removed via the midepigastric port site, and this port was removed prior to closure with a Neto Griffin wound closure device and 0 Vicryl stitches. Next, the umbilical port was removed, and this port site was closed in an identical fashion. Finally, the 2 remaining 5 mm ports were removed with the assistance of the laparoscope. I did not see any signs of obvious bleeding here. Bandages were applied, the patient was extubated prior to transfer to the recovery unit. Date of Procedure: 09/17/24
[2024-09-17] VITALS (32 sets, daily range): BP systolic 111–136; BP diastolic 59–85; PULSE 67–89; RESP 10–25; TEMP 36.3–37; O2SAT 93–98; BMI 29.4
--- NOTE | 2024-09-17 06:26 | W.ANESPRE ---
General Info Date of Service Date Performed: 09/17/24 Height: 5 ft 9 in Weight: 90.435 kg Body Mass Index (BMI): 29.4 Surgical Procedure: Operation Date: 09/17/24 08:55 Proposed Procedure Side Surgeon p Cholecystectomy Laparoscopic Rosalio Nash MD Meds Allergies and Home Medications Allergies Allergy/AdvReac Type Severity Reaction Status Date / Time shellfish derived Allergy Severe Anaphylaxis Verified 09/17/24 07:46 Home Medication ?Medication ?Instructions ?Recorded Unknown [No Known Home Meds] 08/13/24 Current Visit Medications: Current Medications Generic Name Dose Route Start Last Admin Trade Name Freq PRN Reason Stop Dose Admin Acetaminophen 1,000 mg 09/17/24 06:00 Acetaminophen 500 Mg Tab PO 09/17/24 23:59 PREOP HARMONY Celecoxib 200 mg 09/17/24 06:00 Celecoxib 200 Mg Cap PO 09/17/24 23:59 PREOP HARMONY Gabapentin 600 mg 09/17/24 06:00 Gabapentin 300 Mg Cap PO 09/17/24 23:59 PREOP HARMONY Hydromorphone HCl 0.2 mg 09/16/24 18:27 Hydromorphone 1 Mg/Ml Syr IVP 10/16/24 18:26 Q1H PRN PRN Ringer's Solution 1,000 mls @ 80 mls/hr 09/17/24 06:00 IV 09/17/24 23:59 INFUSION HARMONY Cefazolin Sodium/Dextrose 2 gm in 50 mls @ 100 mls/hr 09/17/24 06:00 Ancef Duplex IVPB 09/17/24 23:59 PREOP HARMONY IV Miscellaneous Supplies 1 each 09/17/24 06:00 Iv Access IV 09/17/24 23:59 DIRECTED HARMONY Indocyanine Green 5 mg 09/17/24 06:00 Indocyanine Green 25 Mg Vial IVP 09/17/24 23:59 PREOP HARMONY Sodium Chloride 0 ml 09/17/24 06:00 Normal Saline Flush 10 Ml Syr IV 09/17/24 23:59 PRN PRN Sodium Chloride 0 ml 09/17/24 06:00 Normal Saline 10 Ml Vial IJ 09/17/24 23:59 DIRECTED PRN Sterile Water 0 ml 09/17/24 06:00 Water,Injection,Sterile 10 Ml Vial IJ 09/17/24 23:59 DIRECTED PRN Tramadol HCl 50 mg 09/16/24 18:27 Tramadol 50 Mg Tab PO 10/16/24 18:26 Q6H PRN PRN Pain PFSH Active Problems Active Problems: Problem Status Onset Code Calculus of bile duct with chronic cholecystitis without obstruction Acute K80.44 Cholelithiasis and acute cholecystitis with obstruction Acute K80.01 Hyperbilirubinemia Acute E80.6 Abnormal transaminases Acute R74.8 Cholelithiasis Acute K80.20 Surgical History Surgical History S/P ERCP Tobacco Smoking/Tobacco Use Status: Former Tobacco Use Alcohol Alcohol Intake: never Substance Use Substance use type: does not use Vital Signs and Lab Results Vital Signs Most Recent Vital Signs in EMR: Temp Pulse Resp BP Pulse Ox 37.0 C 80 18 136/82 98 09/17/24 07:40 09/17/24 07:40 09/17/24 07:40 09/17/24 07:40 09/17/24 07:40 Lab Results Blood Type / Crossmatch: No Data to Display Complete Blood Count: No Data to Display Complete Metabolic Panel: No Data to Display Liver Function Panel: No Data to Display Coagulation Panel: No Data to Display Cardiac Panel: No Data to Display Arterial Blood Gas: No Data to Display Venous Blood Gas: No Data to Display Pancreas Panel: No Data to Display Thyroid Panel: No Data to Display Infectious Disease: No Data to Display Blood Cultures: No Data to Display Toxicology Panel: No Data to Display Anesthesia Assessment and Plan Anesthesia History Personal History: No History of Anesthesia Complications Family History: No Family History of Anesthesia Complications Exercise Tolerance Exercise Tolerance: Metabolic Equivalents>4 Pertinent Negatives Pertinent Negatives: No Symptoms of GERD, No Major Cardiovascular Symptoms or Complaints, No Major Pulmonary Symptoms or Complaints and No History of CVA/TIA Cardiac & Pulmonary Exam Cardiac Exam: Normal S1/S2 Heart Sounds Pulmonary Exam: Clear Bilateral Breath Sounds Implantable Cardiac Device Does patient have a Pacemaker or an ICD?: No Airway Exam Known Difficult Airway: No Mallampati Class: 2 Mouth Opening: Normal (> 3cm) Thyromental Distance: Greater than 3 cm Neck Range of Motion: Full ROM Neck Circumference: Normal Teeth Condition: Normal Dentition ASA Classification ASA Score: ASA 2 Emergency Case?: No NPO Status NPO Status: NPO Clears >2 hours, Solids >8 hours Anesthesia Plan Resuscitation Status: Full Code Anesthesia Technique: General Anesthesia Airway Planned: Endotracheal Tube Monitors Used: Standard Monitors and SedLine Preoperative Comments:: 43 yo male for lap sandrita. Sig PMHx: former smoker. no major.
[2024-09-17] MEDS: Celecoxib 200 MG CAP PO (07:49)
[2024-09-17] MEDS: Normal Saline 1,000 ML 80 ML IV (08:17)
[2024-09-17] MEDS: Indocyanine green 25 MG VIAL 5 MG IVP (08:17)
[2024-09-17] MEDS: ceFAZolin 2 GM/50 ML BAG IVPB (09:26)
[2024-09-17] MEDS: Bupivacaine 0.25% Pres-Free W/EPI 30 ML VIAL (09:46)
--- NOTE | 2024-09-17 11:05 | GB_PTH ---
PATIENT: Hernando Soni LOC: [facility] U#:[id number] AGE/SX: 43/M ROOM: RE09/17/[address]: Rosalio Nash MD : [id number] BED: DIS: 09/17/2024 SPEC #: [id number] RECD: 09/17/24 12:38 STATUS: DARRYL REQ #: [id number] CAROLE: 09/17/24 11:[address]: Rosalio Nash DEPT: Surgical Specimen RECD BY: Becky Niño Tissues: 1 - GALLBLADDER Procedures: GROSS AND MICRO LEVEL 3 Comments: [id number]
[2024-09-17] MEDS: HYDROmorphone 1 MG/ML SYR IVP ×2 (11:56→12:06)
[2024-09-17] MEDS: fentaNYL 100 MCG/2 ML VIAL IVP (12:37)
--- NOTE | 2024-09-17 13:03 | W.ANESPOSTOP ---
Postoperative Evaluation Date, Time and Location Date Performed: 09/17/24 Time Performed: 13:03 Patient Location: Day Surgery Unit Vital Signs Most Recent Imported Vital Signs: Most Recent Vital Signs Temp Pulse Resp BP Pulse Ox 36.3 C L 72 18 122/77 96 09/17/24 12:55 09/17/24 12:55 09/17/24 12:55 09/17/24 12:55 09/17/24 12:55 Pain Score Most Recent Pain Score: Most Recent Pain Score Pain Level 2 09/17/24 12:55 Assessment Mental Status: Awake (Alert & Oriented to Patient Baseline) Airway and Respiratory Function: Patent airway with normal (patient baseline) respiratory exam Cardiovascular Function: Hemodynamically Stable Hydration Status: Adequately Hydrated Nausea & Vomiting: No Nausea or Vomiting Pain: Pain is tolerable per patient Peripheral Nerve Block: Patient did not receive a nerve block
== END 2024-09-17 14:30 | disposition home or self-care (01) ==
LOC: SUR 07:32
PROVIDERS: Visit Provider Surgery
PROC: 0FT44ZZ Resection of Gallbladder, Percutaneous Endoscopic Approach (ICD-10-PCS; CPT 47562; principal; 2024-09-17 08:45)
DX: K82.4 Cholesterolosis of gallbladder
CPT/HCPCS: 47562; 88304; J0665; J0690; J1100; J1171; J1885; J2003; J2405; J2704; J3010; J3475